=== PATIENT | male | born 1965 | race Hispanic/Latino ===

== ENCOUNTER 2017-07-28 09:02 | Outpatient (CLI) | payer BC ==
--- NOTE | 2017-07-28 12:44 | XRay Report ---
Chest 2 views: History: Malignant neoplasm base of tongue. Findings: Normal cardiomediastinal silhouette. Trachea is midline. No consolidation, pneumothorax or pleural effusion. Tip of right [id number] in mid superior vena cava. Impression: No acute cardiopulmonary findings.
--- NOTE | 2017-07-28 12:45 | XRay Report ---
Left ankle 3 views: History: Gout, malignant neoplasm this is done. Findings: No bony or articular abnormality talotibial joint and subtalar joint. Spur posterior inferior and posterior superior calcaneum..
--- NOTE | 2017-07-28 17:40 | Vascular Lab Report ---
Left Lower Extremity Venous Duplex Study: Reason for Exam: Pain of the left lower extremity. Comments on the Right: A limited duplex study was done of the proximal veins of the right lower extremity. All veins visualized are freely compressible without evidence of internal echogenicity. Flow is spontaneous and phasic throughout. No evidence of acute or chronic thrombus is seen in any of the vessels visualized. Comments on the Left: All veins visualized are freely compressible without evidence of internal echogenicity. Flow is spontaneous and phasic throughout. No evidence of acute or chronic thrombus is seen in any of the vessels visualized. Impression: No evidence of acute or chronic deep venous thrombosis in the left lower extremity.
== END 2017-07-28 09:03 | disposition home or self-care (01) ==
LOC: SPVWC 09:02
PROVIDERS: ATTEND Internal Medicine Hematology
DX: C01 Malignant neoplasm of base of tongue (principal); M79.89 Other specified soft tissue disorders; M79.662 Pain in left lower leg; M25.472 Effusion, left ankle
CPT/HCPCS: 71020